=== PATIENT | female | born 1980 | race Caucasian/White ===

== ENCOUNTER 2018-12-08 08:35 | Emergency (ER) | payer OTHER ==
[~2018-12-08] VITALS: Ht 157.4 cm; Wt 83.9 kg
--- NOTE | ~2018-12-08 | EKG ---
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1980 Requested By: BRANDON CURRY Order Number: [id number] Reading MD: Pancho Guo MD Measurements Intervals [place] Rate: 114 P: 58 SD: 188 QRS: 26 QRSD: 91 T: -35 QT: 348 QTc: 480 Interpretive Statements Sinus tachycardia RSR' in V1 or V2, right VCD or RVH Inferior infarct, age indeterminate Lateral leads are also involved Compared to ECG 10/27/2018 17:02:11 Right ventricular hypertrophy now present RSR' in V1 or V2 now present Myocardial infarct finding now present Sinus bradycardia no longer present Electronically Signed On 12-11-2018 7:43:10 PDT by Pancho Guo MD CM:EKGRPT:ELECTROCARDIOGRAM REPORT [id number] BRANDON MONTERROSO DRAFT REPORT BRANDON CURRY M.D.
--- NOTE | ~2018-12-08 | EKG ---
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1980 Requested By: BRANDON CURRY Order Number: [id number] Reading MD: Pancho Guo MD Measurements Intervals [place] Rate: 102 P: 40 PA: 183 QRS: 25 QRSD: 86 T: -27 QT: 350 QTc: 456 Interpretive Statements Sinus tachycardia Low voltage, precordial leads RSR' in V1 or V2, right VCD or RVH Compared to ECG 10/27/2018 17:02:11 Low QRS voltage now present Right ventricular hypertrophy now present RSR' in V1 or V2 now present Sinus bradycardia no longer present Electronically Signed On 12-11-2018 7:43:37 PDT by Pancho Guo MD CM:EKGRPT:ELECTROCARDIOGRAM REPORT [id number] BRANDON MONTERROSO DRAFT REPORT BRANDON CURRY M.D.
--- NOTE | ~2018-12-08 | EKG ---
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1980 Requested By: BRANDON CURRY Order Number: [id number] Reading MD: Pancho Guo MD Measurements Intervals [place] Rate: 109 P: 63 VA: 182 QRS: 3 QRSD: 107 T: 0 QT: 359 QTc: 484 Interpretive Statements Sinus tachycardia LAE, consider biatrial enlargement Low voltage, precordial leads RSR' in V1 or V2, right VCD or RVH Borderline T abnormalities, anterior leads Compared to ECG 10/27/2018 17:02:11 Low QRS voltage now present Right ventricular hypertrophy now present RSR' in V1 or V2 now present T-wave abnormality now present Sinus bradycardia no longer present Electronically Signed On 12-11-2018 7:42:19 PDT by Pancho Guo MD CM:EKGRPT:ELECTROCARDIOGRAM REPORT [id number] BRANDON MONTERROSO DRAFT REPORT BRANDON CURRY M.D.
[~2018-12-08 08:35] MED LIST: PROCARDIA XL30 MG PO
[2018-12-08 08:56] LABS: BASO # 0.1 10*3/uL (0.0-0.1); BASO % 0.4 % (0.0-1.0); EOS # 0.1 10*3/uL (0.0-0.4); EOS % 0.6 % (1.0-4.0); HEMATOCRIT 43.5 % (37.0-47.0); HEMOGLOBIN 13.5 g/dl (12.0-16.0); LYMPH # 2.3 10*3/uL (1.3-4.4); LYMPH % 12.6 % (27.0-41.0); MEAN CELL VOLUME 86.3 fl (81.0-99.0); MEAN CORPUSCULAR HGB 26.8 pg (27.0-31.0); MEAN PLATELET VOLUME 9.6 fl (9.6-12.3); MONO # 0.5 10*3/uL (0.1-1.0); NEUT # 14.9 10*3/uL (2.3-7.9); NEUT % 82.9 % (47.0-73.0); PLATELET COUNT AUTOMATED 274 10*3/uL (130-400); RED BLOOD COUNT 5.04 10*6/uL (4.10-5.10); RED CELL DISTRI WIDTH 14.6 % (0-14.5); WHITE BLOOD COUNT 17.9 10*3/uL (4.8-10.8)
[2018-12-08 09:12] LABS: ALBUMIN 3.8 gm/dl (3.1-4.5); CREATININE 1.24 mg/dL (0.55-1.02); POTASSIUM 4.2 mmol/L (3.5-5.1); TOTAL PROTEIN 7.8 gm/dL (6.4-8.2)
[2018-12-08 09:17] LABS: TROPONIN I 0.595 ng/ml (<0.045)
[2018-12-08 09:24] LABS: ACT PARTIAL THROMBO TIME 24.2 SECONDS (20.0-32.1)
[2018-12-08 13:49] LABS: BILIRUBIN NEGATIVE (NEGATIVE); BLOOD NEGATIVE (NEGATIVE); CLARITY SL CLOUDY (CLEAR); COLOR YELLOW (YELLOW); GLUCOSE NEGATIVE (NEGATIVE); KETONE NEGATIVE (NEGATIVE); LEUKO ESTERASE TRACE (NEGATIVE); NITRITE POSITIVE (NEGATIVE); SPECIFIC GRAVITY <= 1.005 (1.005-1.030); UROBILINOGEN 0.2 E.U./dl (0.2-1.0)
[2018-12-08 14:08] LABS: BACTERIA 2+
== END 2018-12-08 17:57 | disposition short-term general hospital (02) ==
LOC: ED 08:35
PROVIDERS: Emergency Medicine
DX: O88.23 Thromboembolism in the puerperium (principal); I26.92 Saddle embolus of pulmonary artery without acute cor pulmonale; O10.93 Unspecified pre-existing hypertension complicating the puerperium; Z79.899 Other long term (current) drug therapy

== ENCOUNTER → 2019-01-09 | Outpatient (CLI) | payer OTHER ==
[2019-01-10 17:10] LABS: ANTICARDIOLIPIN AB, IGG, QN <9 GPL U/mL (0-14); ANTICARDIOLIPIN AB, IGM, QN <9 MPL U/mL (0-12); CARDIOLIPIN AB IGA 161836 <9 APL U/mL (0-11)
[2019-01-11 12:06] LABS: ANTI-THROMBIN III ACTIVITY 132 % (75-135); PROTEIN S-FUNCTIONAL 164525 120 % (63-140)
== END | disposition home or self-care (01) ==
LOC: LAB 14:28
PROVIDERS: Internal Medicine Hematology & Oncology
DX: I26.99 Other pulmonary embolism without acute cor pulmonale (principal)

== ENCOUNTER → 2019-01-13 | Outpatient (CLI) | payer OTHER ==
[~2019-01-13] MED LIST changes: +ZITHROMAX250 MG PO
== END | disposition home or self-care (01) ==
LOC: CT 09:30
DX: I26.99 Other pulmonary embolism without acute cor pulmonale (principal); G47.30 Sleep apnea, unspecified; R06.02 Shortness of breath

== ENCOUNTER 2019-03-11 22:15 | Emergency (ER) | payer OTHER ==
[~2019-03-11] VITALS: Ht 157.4 cm; Wt 83.9 kg
--- NOTE | ~2019-03-11 | EKG ---
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
[~2019-03-11 22:15] MED LIST changes: -ZITHROMAX250 MG PO
[2019-03-11 23:05] LABS: BASO # 0.1 10*3/uL (0.0-0.1); BASO % 0.5 % (0.0-1.0); EOS # 0.2 10*3/uL (0.0-0.4); EOS % 1.2 % (1.0-4.0); HEMATOCRIT 37.9 % (37.0-47.0); HEMOGLOBIN 12.3 g/dl (12.0-16.0); LYMPH # 4.1 10*3/uL (1.3-4.4); LYMPH % 32.7 % (27.0-41.0); MEAN CELL VOLUME 87.5 fl (81.0-99.0); MEAN CORPUSCULAR HGB 28.4 pg (27.0-31.0); MEAN CORPUSCULAR HGB CONC 32.5 g/dl (33.0-37.0); MEAN PLATELET VOLUME 9.6 fl (9.6-12.3); MONO # 0.7 10*3/uL (0.1-1.0); MONO % 5.3 % (3.0-9.0); NEUT # 7.5 10*3/uL (2.3-7.9); NEUT % 60.1 % (47.0-73.0); PLATELET COUNT AUTOMATED 343 10*3/uL (130-400); RED BLOOD COUNT 4.33 10*6/uL (4.10-5.10); RED CELL DISTRI WIDTH 13.8 % (0-14.5); WHITE BLOOD COUNT 12.4 10*3/uL (4.8-10.8)
[2019-03-11 23:14] LABS: INTERNATIONAL NORM RATIO 0.9 (2.0-3.5)
[2019-03-11 23:22] LABS: ALBUMIN 3.5 gm/dl (3.1-4.5); ALKALINE PHOSPHATASE 79 U/L (45-117); BUN 12 mg/dl (7-24); CHLORIDE 105 mmol/L (98-107); CREATININE 0.85 mg/dL (0.55-1.02); POTASSIUM 3.7 mmol/L (3.5-5.1); SGOT/AST 10 IU/L (3-35); SGPT/ALT 18 U/L (12-78); SODIUM 139 mmol/L (136-145); TOTAL PROTEIN 7.3 gm/dL (6.4-8.2)
[2019-03-11 23:24] LABS: B-hCG (QUALITATIVE) NEGATIVE (NEGATIVE)
[2019-03-11 23:25] LABS: TROPONIN I < 0.015 ng/ml (<0.045)
[2019-03-12] MEDS ORDERED: ZITHROMAX250 MG PO (01:37)
== END 2019-03-12 02:10 | disposition home or self-care (01) ==
LOC: ED 22:15
PROVIDERS: Physician Assistant
DX: J18.9 Pneumonia, unspecified organism (principal); Z79.899 Other long term (current) drug therapy; Z86.711 Personal history of pulmonary embolism

== ENCOUNTER → 2019-10-19 | Outpatient (CLI) | payer OTHER ==
[~2019-10-19] MED LIST changes: +KENALOG 0.025%15 GM T; +ZITHROMAX250 MG PO
[2019-10-19 13:06] LABS: BASO % 0.5 % (0.0-1.0); EOS # 0.1 10*3/uL (0.0-0.4); HEMATOCRIT 40.2 % (37.0-47.0); LYMPH # 2.4 10*3/uL (1.3-4.4); LYMPH % 28.7 % (27.0-41.0); MEAN CELL VOLUME 85.4 fl (81.0-99.0); MEAN CORPUSCULAR HGB CONC 31.6 g/dl (33.0-37.0); MEAN PLATELET VOLUME 9.8 fl (9.6-12.3); MONO # 0.4 10*3/uL (0.1-1.0); MONO % 4.5 % (3.0-9.0); NEUT # 5.5 10*3/uL (2.3-7.9); NEUT % 65.2 % (47.0-73.0); PLATELET COUNT AUTOMATED 333 10*3/uL (130-400); RED BLOOD COUNT 4.71 10*6/uL (4.10-5.10); RED CELL DISTRI WIDTH 13.6 % (0-14.5); WHITE BLOOD COUNT 8.4 10*3/uL (4.8-10.8)
[2019-10-19 13:23] LABS: URINE AMPHETAMINES < 1000 (1000ng/ml); URINE BARBITURATES < 200 (200ng/ml); URINE BENZODIAZEPINES < 200 (200ng/ml); URINE CANNABINOIDS (THC) < 50 (50ng/ml); URINE COCAINE < 300 (300ng/ml); URINE METHADONE < 300 (300ng/ml); URINE OPIATES < 300 (300ng/ml); URINE PHENCYCLIDINE < 25 (25ng/ml)
[2019-10-20 07:06] LABS: HEP B CORE AB, IGM Negative (Negative); HEPATITIS B SURFACE AG Negative (Negative); HEPATITIS C VIRUS ANTIBODY 0.1 s/co (0.0-0.9)
== END | disposition home or self-care (01) ==
LOC: US 11:30 → LAB 11:53
PROVIDERS: Obstetrics & Gynecology
DX: N93.9 Abnormal uterine and vaginal bleeding, unspecified (principal)

== ENCOUNTER 2019-10-21 11:42 | Emergency (ER) | payer OTHER ==
[~2019-10-21] VITALS: Ht 157.4 cm; Wt 81.6 kg
[~2019-10-21 11:42] MED LIST changes: -KENALOG 0.025%15 GM T
[2019-10-21] MEDS ORDERED: KENALOG 0.025%15 GM T (12:32)
== END 2019-10-21 12:39 | disposition home or self-care (01) ==
LOC: ED 11:42
DX: L23.9 Allergic contact dermatitis, unspecified cause (principal); Z79.899 Other long term (current) drug therapy

== ENCOUNTER → 2019-10-30 | Outpatient (CLI) | payer OTHER ==
[~2019-10-30] MED LIST changes: +KENALOG 0.025%15 GM T
== END | disposition home or self-care (01) ==
LOC: US 10:46
DX: O34.81 Maternal care for other abnormalities of pelvic organs, first trimester (principal); N83.11 Corpus luteum cyst of right ovary; Z3A.01 Less than 8 weeks gestation of pregnancy

== ENCOUNTER → 2019-12-25 | Outpatient (CLI) | payer OTHER | END | disposition home or self-care (01) | LOC: CARD 10:30 | PROVIDERS: ATTEND Internal Medicine | DX: I34.0 Nonrheumatic mitral (valve) insufficiency (principal); I26.99 Other pulmonary embolism without acute cor pulmonale ==

== ENCOUNTER → 2020-01-12 | Outpatient (CLI) | payer OTHER ==
[2020-01-12 09:57] LABS: BASO % 0.3 % (0.0-1.0); EOS # 0.1 10*3/uL (0.0-0.4); EOS % 0.7 % (1.0-4.0); HEMATOCRIT 35.8 % (37.0-47.0); LYMPH # 2.3 10*3/uL (1.3-4.4); LYMPH % 26.4 % (27.0-41.0); MEAN CELL VOLUME 87.5 fl (81.0-99.0); MEAN CORPUSCULAR HGB 27.6 pg (27.0-31.0); MEAN CORPUSCULAR HGB CONC 31.6 g/dl (33.0-37.0); MEAN PLATELET VOLUME 9.6 fl (9.6-12.3); MONO # 0.4 10*3/uL (0.1-1.0); MONO % 4.2 % (3.0-9.0); NEUT # 5.9 10*3/uL (2.3-7.9); NEUT % 68.1 % (47.0-73.0); PLATELET COUNT AUTOMATED 278 10*3/uL (130-400); RED BLOOD COUNT 4.09 10*6/uL (4.10-5.10); RED CELL DISTRI WIDTH 13.9 % (0-14.5); WHITE BLOOD COUNT 8.7 10*3/uL (4.8-10.8)
[2020-01-12 10:13] LABS: ALBUMIN 2.9 gm/dl (3.1-4.5); ALKALINE PHOSPHATASE 46 U/L (45-117); BUN 4 mg/dl (7-24); CHLORIDE 106 mmol/L (98-107); CHOLESTEROL 156 mg/dL (<200); CREATININE 0.58 mg/dL (0.55-1.02); HDL CHOLESTEROL 67 mg/dl (40-60); LDL CHOLESTEROL 66 mg/dL (9-159); POTASSIUM 4.1 mmol/L (3.5-5.1); SGOT/AST 4 IU/L (3-35); SGPT/ALT 13 U/L (12-78); SODIUM 136 mmol/L (136-145); TOTAL PROTEIN 6.7 gm/dL (6.4-8.2); TRIGLYCERIDES 114 mg/dl (<150); VLDL CHOLESTEROL 23 mg/dL (6-40)
== END | disposition home or self-care (01) ==
LOC: LAB 09:28
PROVIDERS: Family Medicine; Obstetrics & Gynecology Maternal & Fetal Medicine; ATTEND Family Medicine
DX: Z13.220 Encounter for screening for lipoid disorders (principal); E55.9 Vitamin D deficiency, unspecified; I26.02 Saddle embolus of pulmonary artery with acute cor pulmonale; R53.82 Chronic fatigue, unspecified; Z79.01 Long term (current) use of anticoagulants; Z13.1 Encounter for screening for diabetes mellitus; Z86.711 Personal history of pulmonary embolism

== ENCOUNTER → 2020-01-21 | Outpatient (CLI) | payer OTHER ==
[2020-01-24 11:09] LABS: ACTIVATED PROTEIN C 2.3 ratio (2.2-3.5); ANTI-THROMBIN III ACTIVITY 103 % (75-135); PLASMIN0GEN ACTIVITY 148 % (70-150); PROTEIN C, ACTIVITY 119 % (73-180); PROTEIN S, FREE 71 % (57-157); PTT-LA 48.3 sec (0.0-51.9)
[2020-01-24 12:11] LABS: LUPUS REFLEX INTERPRETATION Comment: (.)
[2020-01-24 16:12] LABS: ANTICARDIOLIPIN AB, IGG, QN <9 GPL U/mL (0-14); ANTICARDIOLIPIN AB, IGM, QN <9 MPL U/mL (0-12); CARDIOLIPIN AB IGA <9 APL U/mL (0-11)
[2020-01-25 07:06] LABS: BETA-2 GLYCOPROTEIN I AB,IGA <9 (0-25); BETA-2 GLYCOPROTEIN I AB,IGG <9 (0-20); BETA-2 GLYCOPROTEIN I AB,IGM <9 (0-32)
== END | disposition home or self-care (01) ==
LOC: LAB 11:16
PROVIDERS: ATTEND Obstetrics & Gynecology Maternal & Fetal Medicine
DX: O88.211 Thromboembolism in pregnancy, first trimester (principal); O09.511 Supervision of elderly primigravida, first trimester; Z3A.13 13 weeks gestation of pregnancy

== ENCOUNTER 2020-02-04 19:42 | Emergency (ER) | payer OTHER ==
[~2020-02-04] VITALS: Ht 157.4 cm; Wt 85.7 kg
[2020-02-04 20:42] LABS: BASO # 0.1 10*3/uL (0.0-0.1); BASO % 0.4 % (0.0-1.0); EOS # 0.3 10*3/uL (0.0-0.4); EOS % 2.5 % (1.0-4.0); HEMATOCRIT 33.7 % (37.0-47.0); LYMPH # 2.8 10*3/uL (1.3-4.4); LYMPH % 24.8 % (27.0-41.0); MEAN CELL VOLUME 88.5 fl (81.0-99.0); MEAN CORPUSCULAR HGB 28.1 pg (27.0-31.0); MEAN CORPUSCULAR HGB CONC 31.8 g/dl (33.0-37.0); MEAN PLATELET VOLUME 9.5 fl (9.6-12.3); MONO # 0.5 10*3/uL (0.1-1.0); NEUT # 7.5 10*3/uL (2.3-7.9); NEUT % 66.9 % (47.0-73.0); PLATELET COUNT AUTOMATED 270 10*3/uL (130-400); RED BLOOD COUNT 3.81 10*6/uL (4.10-5.10); WHITE BLOOD COUNT 11.3 10*3/uL (4.8-10.8)
[2020-02-04 20:58] LABS: ALBUMIN 2.7 gm/dl (3.1-4.5); ALKALINE PHOSPHATASE 58 U/L (45-117); BUN 9 mg/dl (7-24); CHLORIDE 107 mmol/L (98-107); CREATININE 0.79 mg/dL (0.55-1.02); POTASSIUM 3.5 mmol/L (3.5-5.1); SGOT/AST 9 IU/L (3-35); SGPT/ALT 14 U/L (12-78); SODIUM 139 mmol/L (136-145); TOTAL PROTEIN 6.6 gm/dL (6.4-8.2)
[2020-02-04] MEDS ORDERED: ZITHROMAX250 MG PO (21:59)
== END 2020-02-04 22:14 | disposition home or self-care (01) ==
LOC: ED 19:42
PROVIDERS: Emergency Medicine
DX: J40 Bronchitis, not specified as acute or chronic (principal); I10 Essential (primary) hypertension

== ENCOUNTER → 2020-02-04 | Outpatient (CLI) | payer OTHER ==
[2020-02-08 01:08] LABS: AFP VALUE 32.9 ng/mL (.); GEST AGE ON COLLECT 20.3 weeks (.); GESTATIONAL AGE BASED ON Ultrasound (.); INSULIN DEPENDANT DIABETES No (.); MATERNAL AGE AT EDD 38.4 yr (.); MULTIPLE GESTATION No (.); OSBR RISK 10000 (.); RACE Caucasian (.); TEST RESULTS *Screen Negative* (.); WEIGHT 189 lbs (.)
== END | disposition home or self-care (01) ==
LOC: LAB 19:47
PROVIDERS: ATTEND Obstetrics & Gynecology
DX: Z33.1 Pregnant state, incidental (principal); Z3A.16 16 weeks gestation of pregnancy; Z86.711 Personal history of pulmonary embolism

== ENCOUNTER 2020-04-20 18:02 | Emergency (ER) | payer OTHER ==
[~2020-04-20] VITALS: Ht 157.4 cm; Wt 93.0 kg
[2020-04-20 19:48] LABS: BASO % 0.2 % (0.0-1.0); EOS # 0.2 10*3/uL (0.0-0.4); EOS % 1.2 % (1.0-4.0); HEMATOCRIT 33.4 % (37.0-47.0); LYMPH # 2.5 10*3/uL (1.3-4.4); LYMPH % 20.5 % (27.0-41.0); MEAN CELL VOLUME 88.4 fl (81.0-99.0); MEAN CORPUSCULAR HGB 27.8 pg (27.0-31.0); MEAN CORPUSCULAR HGB CONC 31.4 g/dl (33.0-37.0); MEAN PLATELET VOLUME 9.5 fl (9.6-12.3); MONO # 0.6 10*3/uL (0.1-1.0); MONO % 4.6 % (3.0-9.0); NEUT # 8.9 10*3/uL (2.3-7.9); NEUT % 72.7 % (47.0-73.0); PLATELET COUNT AUTOMATED 264 10*3/uL (130-400); RED BLOOD COUNT 3.78 10*6/uL (4.10-5.10); RED CELL DISTRI WIDTH 13.4 % (0-14.5); WHITE BLOOD COUNT 12.2 10*3/uL (4.8-10.8)
[2020-04-20 19:57] LABS: INTERNATIONAL NORM RATIO 0.9 (2.0-3.5)
[2020-04-20 20:12] LABS: ALBUMIN 2.4 gm/dl (3.1-4.5); ALKALINE PHOSPHATASE 91 U/L (45-117); BUN 6 mg/dl (7-24); CHLORIDE 108 mmol/L (98-107); CREATININE 0.55 mg/dL (0.55-1.02); POTASSIUM 3.4 mmol/L (3.5-5.1); SGOT/AST 8 IU/L (3-35); SGPT/ALT 9 U/L (12-78); SODIUM 139 mmol/L (136-145); TOTAL PROTEIN 6.3 gm/dL (6.4-8.2)
[2020-04-20] MEDS ORDERED: CLARITIN10 MG PO (21:32)
== END 2020-04-20 21:48 | disposition home or self-care (01) ==
LOC: ED 18:02
PROVIDERS: Emergency Medicine
DX: O99.513 Diseases of the respiratory system complicating pregnancy, third trimester (principal); Z20.828 Contact with and (suspected) exposure to other viral communicable diseases; R79.1 Abnormal coagulation profile; Z3A.31 31 weeks gestation of pregnancy; J06.9 Acute upper respiratory infection, unspecified; I10 Essential (primary) hypertension

== ENCOUNTER → 2020-05-02 | Outpatient (CLI) | payer OTHER ==
[~2020-05-02] MED LIST changes: +CLARITIN10 MG PO
== END | disposition home or self-care (01) ==
LOC: LAB 10:42
PROVIDERS: ATTEND Obstetrics & Gynecology Maternal & Fetal Medicine
DX: Z34.83 Encounter for supervision of other normal pregnancy, third trimester (principal); Z79.01 Long term (current) use of anticoagulants; Z86.711 Personal history of pulmonary embolism; Z3A.30 30 weeks gestation of pregnancy